=== PATIENT | female | born 1940 | race Caucasian/White ===

== ENCOUNTER 2016-08-16 10:58 | Day surgery (SDC) | payer MEDICARE ==
[~2016-08-16] VITALS: Ht 156.2 cm; Wt 70.0 kg
--- NOTE | ~2016-08-16 | OP ---
PATIENT NAME: LENA CHURCH MEDICAL RECORD: [id number] :44 LOCATION:D.OPS ADMISSION DATE: SURGEON: MARJORIE GOMEZ DO DATE OF OPERATION: 08/16/2016 PROCEDURE: Colonoscopy with snare polypectomy, hot forcep polypectomy, and cold forcep biopsy. INDICATIONS FOR PROCEDURE: Change in bowel habits, lower abdominal pain, history of diverticulosis, and history of colon polyps. SCOPE: Olympus video pediatric colonoscope. MEDICATIONS: Propofol 620 mg IV per anesthesia. WITHDRAWAL TIME: Greater than 15 minutes. ESTIMATED BLOOD LOSS: Less than 5 mL. COMPLICATIONS: None. FINDINGS: Informed consent was given. The patient was made comfortable with the above medication. After reaching an adequate level of sedation by slow IV push, the patient was placed on her left side. A digital rectal examination was performed and revealed some skin tags from previous hemorrhoids. The endoscope was then advanced under direct visualization to the cecum, evidenced by the appendiceal orifice and ileocecal valve. The scope was slowly withdrawn and the mucosa was carefully examined. There were a total of 6 separate polyps. Five of these were located in the descending colon. They were all benign and sessile appearing. It measured in range from 3 mm to 9 mm. Three of these polyps in the descending colon were removed with snare cautery polypectomy. The largest, measuring 9 cm in the descending colon, left a moderately-sized defect with some bleeding noted. To close this, 2 endoclips were used successfully for hemostasis. Two of the polyps were removed with hot forceps from the descending colon. All of these polyps were retrieved. The final polyp was located in the transverse colon. It was a benign and sessile appearing polyp measuring approximately 4 mm in size, which was removed with cold forceps successfully. Also on this examination, there was evidence of moderate to severe diverticulosis consisting of mixed small and large mouth diverticuli. Retroflexion was performed in the rectum and did note some hemorrhoids with evidence of a prior hemorrhoidectomy. There was no bleeding stigmata or evidence of bleeding. The endoscope was then withdrawn from the patient. The patient tolerated the procedure well and there were no complications. IMPRESSION: 1. Six separate polyps as described above located in the descending colon and transverse colon, all removed and retrieved. 2. Moderate to severe diverticulosis without evidence of diverticulitis. 3. Internal hemorrhoids without evidence of bleeding. PLAN AND RECOMMENDATIONS: 1. Discharge home when recovery parameters are met. 2. Continue current diet. 3. Continue current medications. 4. Recommend continuing Metamucil 1-2 tablespoons daily to regulate bowel OPERATIVE REPORT [id number] LENA CHURCH. 5. Okay to use MiraLax as needed for constipation. 6. Follow up in the GI clinic in 3-4 weeks to discuss changes in symptoms with fiber supplementation. We could consider some Bentyl if abdominal pain is an ongoing feature suggestive of irritable bowel syndrome versus Linflorentin if constipation continues to predominate while taking fiber. TRANSINT:[id number] Voice Confirmation ID: [id number] DOCUMENT ID: [id number] MARJORIE GOMEZ DO CC: [id number] DICTATION DATE: 08/16/16 1520 [facility] ATTENDANT: 08/16/16 2353 [facility] 08/16/16 [facility] [address] [place] [address]
[~2016-08-16 10:58] MED LIST: ARICEPT5 MG PO; ARMOUR THYROID90 MG PO; BACTRIM DS TABL1 TAB PO; BUPROPION HCL100 M1 PO; CELEXA40 MG PO; CENTRUM COMPLE1 EACH PO; CO Q-10200 MG PO; COLACE100 MG PO; COREG6.25 MG PO; COZAAR50 MG PO; CYMBALTA20 MG PO; DEPAKOTE ER250 MG PO; DESERYL100 MG PO; FUROSEMIDE20 MG PO; HYDROCODON-ACE1 EAC6 PO; HYDROCODONE-APA1 TAB PO; KLONOPIN0.5 MG PO; MIRALAX17 GM PO; MULTI-DAY VITAM1 TAB PO; NEURONTIN 300300 MG PO; OMEPRAZOLE20 M1 PO; PEPCID40 MG PO; PRAVACHOL80 MG PO; PROTONIX20 MG PO; ROCALTROL0.25 MCG PO; TIROSINT88 MCG PO; ULTRAM50 MG PO; WELLBUTRIN SR150 MG PO; ZYPREXA10 MG PO
[2016-08-16 12:18] LABS: BASOPHILS 0.8 % (0-2); EOSINOPHILS 3.6 % (0-7); IMMATURE GRANULOCYTES 0.5 % (0-5); LYMPHOCYTES 16.2 % (15-50); MCH 29.4 pg (26.0-34.0); MCHC 32.4 g/dL (31.0-37.0); MCV 90.9 fL (80.0-100.0); MEAN PLATELET VOLUME 11.1 fL (7.4-10.4); MONOCYTES 15.3 % (2-11); NEUTROPHILS 63.6 % (40-80); PLATELET COUNT 208 10x3/uL (130-400); RBC 3.74 10x6/uL (4.00-5.40); WBC 6.4 10x3/uL (4.8-10.8)
[2016-08-16] MEDS ORDERED: CYMBALTA30 MG PO (12:26)
[2016-08-16 12:32] VITALS: BP 117/61; Ht 156.2 cm; Wt 70.0 kg
[2016-08-16 12:33] LABS: ANION GAP 16.7 mmol/L (8-16); CALCIUM 9.9 mg/dL (8.5-10.1); CARBON DIOXIDE 20.9 mmol/L (21.0-32.0); CREATININE - SERUM 2.1 mg/dL (0.6-1.3); POTASSIUM - SERUM 4.6 mmol/L (3.5-5.1)
--- NOTE | 2016-08-16 16:06 | NUR ---
1605--IV DC'D, PT UP TO DRESS AT THIS TIME. JILLIAN WALDRON
--- NOTE | 2016-08-16 16:22 | NUR ---
0652--DISCHARGE INSTRUCTIONS GIVEN, PT VERBALIZES UNDERSTANDING. PT OFF UNIT VIA JUAN. JILLIAN WALDRON
== END 2016-08-16 16:20 | disposition home or self-care (01) ==
LOC: D.OPS 10:58
PROVIDERS: Anesthesiology
DX: K63.5 Polyp of colon (principal); D12.2 Benign neoplasm of ascending colon; K57.30 Diverticulosis of large intestine without perforation or abscess without bleeding; K64.4 Residual hemorrhoidal skin tags; K64.8 Other hemorrhoids; Z01.812 Encounter for preprocedural laboratory examination

== ENCOUNTER → 2016-11-02 11:49 | Outpatient (CLI) | payer MEDICARE ==
[2016-08-16 12:32] VITALS: BMI 28.6
[~2016-11-02 11:49] MED LIST changes: +CYMBALTA30 MG PO
== END | disposition home or self-care (01) ==
LOC: D.MRI 11:49
DX: M48.06 Spinal stenosis, lumbar region (principal)